=== PATIENT | male | born 1985 | race Hispanic/Latino ===

== ENCOUNTER 2024-02-12 08:36 | Emergency (ER) | payer OTHER ==
[~2024-02-12] VITALS: Ht 177.8 cm; Wt 111.2 kg
[2024-02-12] MEDS ORDERED: ANUSOL-HC30 GM PR (08:54)
[2024-02-12] MEDS ORDERED: ATHLETIC FOOT C30 GM TOP (08:54)
[2024-02-12 10:35] VITALS: BP 157/87
== END 2024-02-12 10:36 | disposition other institution, planned readmission (95) ==
LOC: ED 08:36
DX: S01.112A Laceration without foreign body of left eyelid and periocular area, initial encounter (principal); W01.198A Fall on same level from slipping, tripping and stumbling with subsequent striking against other object, initial encounter; Z79.899 Other long term (current) drug therapy
CPT/HCPCS: 12011; 70450; 99284-25